=== PATIENT | female | born 1950 | race Caucasian/White ===

== ENCOUNTER → 2020-08-16 | Outpatient (CLI) | payer MEDICARE ==
--- NOTE | 2020-08-18 11:58 | MM ---
Reason for exam: screening (asymptomatic). History: Patient is postmenopausal and had first child at age 39. Family history of breast cancer in maternal grandmother at age 60. Physical Findings: A clinical breast exam by your physician is recommended on an annual basis and results should be correlated with mammographic findings. MG 3D Screening Mammo W/Cad Bilateral CC and MLO view(s) were taken. There are scattered fibroglandular densities. No significant changes when compared with prior studies. ASSESSMENT: Benign, BI-RAD 2 RECOMMENDATION: Routine screening mammogram of both breasts in 1 year.
== END | disposition home or self-care (01) ==
LOC: RADMAMWWP 11:03
PROVIDERS: ATTEND Obstetrics & Gynecology
DX: Z12.31 Encounter for screening mammogram for malignant neoplasm of breast (principal); Z80.3 Family history of malignant neoplasm of breast
CPT/HCPCS: 77063; 77067

== ENCOUNTER → 2020-10-31 | Outpatient (CLI) | payer MEDICARE ==
[2020-10-31 15:25] LABS: Basophils # (A) 0.1 k/uL (0-0.2); Basophils % (A) 1 %; Eosinophils % (A) 0 %; HCT 44.4 % (34.0-46.0); HGB 14.7 gm/dL (11.4-16.0); Lymphocytes % (A) 22 %; MCH 30.5 pg (25.0-35.0); MCV 92.3 fL (80.0-100.0); Mean Platelet Volume 7.5; Monocytes # (A) 0.5 k/uL (0-1.0); Monocytes % (A) 6 %; Neutrophils # (A) 6.6 k/uL (1.3-7.7); Neutrophils % (A) 71 %; Platelet Count 285 k/uL (150-450); RBC 4.81 m/uL (3.80-5.40); RDW 11.8 % (11.5-15.5); WBC 9.3 k/uL (3.8-10.6)
[2020-10-31 15:34] LABS: Potassium 4.1 mmol/L (3.5-5.1)
== END | disposition home or self-care (01) ==
LOC: LABPAT 14:32
PROVIDERS: ATTEND Orthopaedic Surgery
DX: Z01.818 Encounter for other preprocedural examination (principal); S52.572D Other intraarticular fracture of lower end of left radius, subsequent encounter for closed fracture with routine healing
CPT/HCPCS: 36415; 80051; 85025; 93005

== ENCOUNTER 2020-11-02 12:49 | Day surgery (SDC) | payer MEDICARE ==
[2020-10-31 15:41] VITALS: BMI 24.0
--- NOTE | 2020-11-02 08:40 | HP ---
HISTORY AND PHYSICAL CHIEF COMPLAINT: Left wrist pain. HISTORY OF PRESENT ILLNESS: The patient is a 70-year-old, right-hand dominant, retired female who presents with left wrist pain after an injury on 10/31/2020. She fell on some [place]. She notes left wrist pain ever since. She denies previous injury. PAST MEDICAL HISTORY: Significant for mastocytosis and depression. PAST SURGICAL HISTORY: Significant for appendectomy, tonsillectomy, laparoscopy, rectocele repair, and cholecystectomy. FAMILY HISTORY: Significant for cancer and heart disease along with Crohn's. SOCIAL HISTORY: Significant for social alcohol use. REVIEW OF SYSTEMS: Sixteen-point review of systems otherwise reviewed and is noncontributory. ALLERGIES: She does deny drug allergies. PHYSICAL EXAMINATION: On examination, patient is approximately 5 feet 4 inches, 140 pounds of mesomorphic habitus. HEENT exam is nonfocal. Neck is supple. She is nontender about the left shoulder and elbow. On examination of her left wrist, she has moderate swelling. Skin is intact. She has dorsal deformity. She is tender over the distal radius. The distal neurovascular exam appears to be intact. She does fire the finger flexors, extensors, and EPL along with FPL. X-rays of the left wrist obtained in the office show an intra-articular distal radius fracture with dorsal comminution and angulation. Less than 1 mm articular step-off is noted. IMPRESSION: Acute left intra-articular distal radius fracture. RECOMMENDATIONS: I talked to the patient and her at length regarding her condition along with treatment options. At this point, with her degree of initial displacement/angulation and comminution, I recommend proceeding with surgical intervention. We will plan to proceed with open reduction and internal fixation. Potentially we will perform that as an outpatient procedure. Risks and benefits were discussed at length in layman's terms. MMODL / IJN: [id number] /
[2020-11-02 13:26] VITALS: RESP 16
[2020-11-02] MEDS ORDERED: ONDANSETRON 4 MG/2 ML VIAL ONE ×2 (13:28→16:40)
[2020-11-02] MEDS ORDERED: DEXAMETHASONE SOD PHOSPHATE 4 MG/ML 1 ML VIAL IV ONE (13:30)
[2020-11-02] MEDS ORDERED: LIDOCAINE 1% (10MG/ML) FOR IV START INTRADERMA ONE (13:30)
[2020-11-02] MEDS ORDERED: LACTATED RINGERS 1,000 ML IV ONE ×2 (13:30→14:58)
[2020-11-02] MEDS ORDERED: MIDAZOLAM 2 MG/2 ML VIAL IV ONE ×2 (13:40→13:41)
[2020-11-02] MEDS ORDERED: MIDAZOLAM 2 MG/2 ML VIAL ONE (13:56)
[2020-11-02] MEDS ORDERED: LIDOCAINE 1% INJ 10MG/ML (20 ML MDV) ONE (13:56)
[2020-11-02] MEDS ORDERED: ROPIVACAINE 5 MG/ML 30 ML VIAL ONE (13:56)
[2020-11-02] MEDS ORDERED: PROPOFOL 10 MG/ML 20 ML VIAL IV ONE (13:56)
[2020-11-02] MEDS ORDERED: fentaNYL (PF) 50 MCG/ML 2 ML AMP ONE (13:56)
--- NOTE | 2020-11-02 14:30 | P.ANPRN ---
Procedure Note - Anesthesia - Nerve Block Performed Left Supraclavicular Single Time Out Performed: Yes (1339) Date of Procedure: 11/02/20 Procedure Start Time: 13:40 Procedure Stop Time: 13:46 Location of Patient: PreOp Indication: Acute Post-Operative Pain, Requested by Surgeon Specifically requested for management of pain by : Jones Moore Sedation Type: Sedate with meaningful contact maintained Preparation: Sterile Prep Position: Supine Catheter: None Needle Types: Pajunk Needle Gauge: 21 Ultrasound used to visualize needle placement: Yes Ultrasound used to observe medication spread: Yes Injectate: 0.5% Ropivacaine (see comment for volume) (25cc) Blood Aspirated: No Pain Paresthesia on Injection Noted: No Resistance on Injection: Normal Image Stored and Saved: Yes Events: Uneventful and Well Tolerated
[2020-11-02] MEDS ORDERED: BUPIVACAINE (PF) 0.5% 30 ML VIAL SQ ONE (14:32)
[2020-11-02] MEDS ORDERED: ceFAZolin 1,000 MG in SODIUM CHLORIDE 0.9% 1,000 ML IRRIGATION ONE (14:42)
--- NOTE | 2020-11-02 15:34 | XR ---
EXAMINATION TYPE: XR wrist limited LT, FL guidance operating room DATE OF EXAM: 11/02/2020 COMPARISON: NONE HISTORY: 70 year-old female left wrist ORIF FINDINGS: 3 intraoperative fluoroscopic images during left ORIF with placement of volar plate and screw fixatio n along the distal radius. FLUOROSCOPY Fluoroscopy time of 30 seconds was used during left wrist ORIF. 3 image/s document/s the procedure. IMPRESSION: Intraoperative fluoroscopy as above.
--- NOTE | 2020-11-02 15:38 | P.OP ---
Date of Procedure: 11/02/20 Preoperative Diagnosis: Displaced left intra-articular distal radius fracture Postoperative Diagnosis: Same Procedure(s) Performed: Open reduction and internal fixation left intra-articular distal radius fracture3 part Implants: Arthrex narrow 3 hole volar distal radius plate [facility] Surgeon: Jones Moore Estimated Blood Loss (ml): 3 Pathology: none sent Condition: stable Disposition: PACU Indications for Procedure: The patient's a 62-year-old female who presents after falling on some ice injuring her left wrist yesterday. Upon evaluation she was noted to have an angulated/displaced left intra-articular distal radius fracture with dorsal comminution. A discussion of the risks and benefits of operative intervention versus conservative measures was made with patient. She opted to proceed with surgery. Operative risks to include infection, neurovascular injury, development of blood clots, possible development of nonunion/malunion and need for subsequent procedures was discussed. Informed consent was obtained. Operative Findings: As below Description of Procedure: The patient was brought to the operating room, and after induction of general anesthesia the left upper extremity was prepped and draped in normal fashion. The tourniquet was inflated to 250 mmHg. A centimeter incision was then made along the volar radial aspect of the left wrist centered over the flexor carpi radialis. The skin was incised sharply. Subcutaneous tissues were divided bluntly. Electrocautery was used for hemostasis. The flexor carpi radialis tendon sheath was opened and the tendon was gently retracted ulnarly and the radial artery was retracted radially. The underlying fascia was opened. The contents of the carpal canal were then bluntly dissected ulnarly. A self-ret aining retractor was placed. The pronator quadratus was elevated off the volar surface the fracture site was identified and cleaned of clot and debris. The fracture was then reduced with longitudinal traction and manipulation. This is verified on the AP and lateral views of fluoroscopy. A 3 hole narrow volar plate was placed just proximal to the watershed line. This was held with all of wire along the shaft and a K wire distally. This was verified with fluoroscopy. A 3.5 mm cortical screw was placed proximally with good purchase. The distal row of smooth locking pegs were placed with the aid of fluoroscopy. Proximally was filled a similar fashion. The remaining 3.5 mm cortical screws were placed with good purchase. Final fluoroscopic views to include AP PA and elevated lateral showed adequate reduction of this fracture with jainism of volar tilt. The articular surface showed less than 1 mm articular step-off. The wound was irrigated normal saline. The pronator quadratus was closed with interrupted 3-0 Vicryl sutures. The subcutaneous tissues reapproximated interrupted 3-0 Vicryl sutures. The skin was reprepped and a 4-0 subcuticular Prolene suture. Steri-Strips were applied. The tourniquet was deflated less than 60 minutes total tourniquet time. A sterile dressing was applied in addition to a volar splint. The patient was then awoken from general anesthesia and transferred to the recovery room in good condition. Blood loss was estimated at 3 mL. No complications were incurred. Sponge and needle counts were correct at the end of the case.
[2020-11-02 15:44] VITALS: TEMP 96.8
[2020-11-02] MEDS ORDERED: HYDROmorphone 0.5 MG/0.5 ML SYRINGE IVP ONE (16:01)
[2020-11-02] MEDS ORDERED: ONDANSETRON 4 MG/2 ML VIAL IVP ONE (16:40)
[2020-11-02] MEDS ORDERED: Acetaminophen-Codeine 300-30mg TAB ONE (17:08)
[2020-11-02] MEDS ORDERED: Acetaminophen-Codeine 300-30mg TAB PO ONE (17:10)
[2020-11-02 17:27] VITALS: BP 138/89; PULSE 92
== END 2020-11-02 17:50 | disposition home or self-care (01) ==
LOC: OR 12:49
PROVIDERS: ATTEND Orthopaedic Surgery
DX: S52.572A Other intraarticular fracture of lower end of left radius, initial encounter for closed fracture (principal); W20.8XXA Other cause of strike by thrown, projected or falling object, initial encounter; Y93.01 Activity, walking, marching and hiking; Y92.832 Beach as the place of occurrence of the external cause; I48.91 Unspecified atrial fibrillation; K21.9 Gastro-esophageal reflux disease without esophagitis; F32.9 Major depressive disorder, single episode, unspecified; M79.7 Fibromyalgia; D47.09 Other mast cell neoplasms of uncertain behavior; Z98.890 Other specified postprocedural states; Z90.49 Acquired absence of other specified parts of digestive tract; Z90.89 Acquired absence of other organs; Z82.49 Family history of ischemic heart disease and other diseases of the circulatory system; Z83.79 Family history of other diseases of the digestive system; Z80.9 Family history of malignant neoplasm, unspecified; Z79.82 Long term (current) use of aspirin
CPT/HCPCS: 64415; 76942; 73100; 25609; C1713; J2250; J1100; J2405; J0690; J2001; J3010; J2795; J2704; J1170

== ENCOUNTER → 2020-12-30 | Outpatient (CLI) | payer MEDICARE ==
--- NOTE | 2020-12-30 15:49 | MR ---
EXAMINATION TYPE: MR knee LT wo con DATE OF EXAM: 12/30/2020 COMPARISON: Outside radiograph 12/15/2020 HISTORY: 70-year-old female with left knee pain. [id number]. TECHNIQUE: Multiplanar, multisequence imaging of the left knee is performed without IV contrast. FINDINGS: ACL, PCL, MCL are intact. There is focal area of fluid signal measuring 8 mm at the popliteus myotendinous junction. Otherwise, LCL complex is intact. Degenerative signal at the junction of the posterior horn and body of the medial meniscus may contact the tibial articular surface on one image, sagittal series 301 image 25. Mild diffuse thinning of me dial compartment articular cartilage volume. Lateral meniscus is intact. Overall lateral compartment articular cartilage is maintained. Areas of severe full-thickness cartilage loss along the lateral patellar facet with reactive subchond ral marrow signal changes. Moderate irregular cartilage loss along the medial patellar facet. Extensor mechanism is intact. Anterior soft tissue swelling noted. Additional edema within the suprap atellar fat pad. Physiologic joint fluid. Trace early Martinez's cyst measuring only 7 mm wide and 2.1 cm long. Normal popliteal artery anatomy in muscle bulk. No suspicious bone marrow replacement. IMPRESSION: 1. Degenerative signal and possible subtle oblique undersurface tear at the junction of the posterior horn and body of the medial meniscus (seen on a single sagittal image). 2. 8 mm fluid signal at the popliteus myotendinous junction could represent a strain and small tear. 3. Severe full-thickness cartilage loss along the lateral patellar facet and moderate irregular carti fany loss along the medial patellar facet. 4. Some edema within the suprapatellar fat pad can be seen with fat pad impingement syndrome. Clinica lly correlate. 5. Anterior soft tissue swelling and a tiny early Martinez's cyst.
== END | disposition home or self-care (01) ==
LOC: RADMRIMAIN 12:40
PROVIDERS: ATTEND Orthopaedic Surgery
DX: M71.22 Synovial cyst of popliteal space [Baker], left knee (principal); M79.4 Hypertrophy of (infrapatellar) fat pad; M94.8X8 Other specified disorders of cartilage, other site; M79.89 Other specified soft tissue disorders; M25.862 Other specified joint disorders, left knee; R60.0 Localized edema; R93.7 Abnormal findings on diagnostic imaging of other parts of musculoskeletal system

== ENCOUNTER → 2021-06-05 | Outpatient (CLI) | payer MEDICARE ==
[2021-06-05 20:56] LABS: African American GFR (CKD) 103.2 (60.0-200.0); Albumin 4.7 g/dL (3.80-4.90); Albumin/Globulin Ratio 1.81 (1.60-3.17); Anion Gap 10.6 mmol/L (4.00-12.00); BUN/Creat Ratio 22.86 Ratio (12.00-20.00); Calcium 9.9 mg/dL (8.7-10.3); Carbon Dioxide 22.4 mmol/L (21.6-31.8); Globulin 2.6 g/dL (1.6-3.3); Potassium 4.3 mmol/L (3.5-5.5); Total Bilirubin 0.6 mg/dL (0.3-1.2); Total Protein 7.3 g/dL (6.2-8.2)
[2021-06-05 21:24] LABS: C-Peptide 1.03 ng/mL (0.81-3.85)
== END | disposition home or self-care (01) ==
LOC: LABWHC1 10:48
PROVIDERS: ATTEND Internal Medicine Endocrinology, Diabetes & Metabolism
DX: M81.0 Age-related osteoporosis without current pathological fracture (principal)
CPT/HCPCS: 36415; 80053; 82306; 82523; 83970; 84443; 84681

== ENCOUNTER → 2021-07-26 | Outpatient (CLI) | payer MEDICARE ==
--- NOTE | 2021-07-27 14:14 | BD ---
EXAMINATION TYPE: Axial Bone Density DATE OF EXAM: 07/26/2021 COMPARISON: NONE CLINICAL HISTORY: Height: 5 FT 3IN Weight: 144 FRAX RISK QUESTIONS: Alcohol (3 or more units per day): NO Family History (Parent hip fracture): NO Glucocorticoids (More than 3mos): NO (Ex: prednisone, prednisolone, methylprednisolone, dexamethasone, and hydrocortisone). History of Fracture in Adulthood: YES Secondary Osteoporosis: 1. Type 1 Diabetes: NO 2. Hyperthyroidism: [employer] 3. Menopause before 45: [employer] 4. Malnutrition: [employer] 5. Chronic liver disease: NO Rheumatoid Arthritis: NO Current Tobacco Use: NO RISK FACTORS HISTORY OF: History of Wrist Fracture: LEFT When: 2020 Surgery to Spine/Hip(right/left)/Wrist (right/left): LEFT WRIST When: 2020 Family History of Osteoporosis: YES Active: YES Diet low in dairy products/other sources of calcium: NO Postmenopausal woman: AGE 57 Take estrogen and/or progesterone medications: NO Lost more than 2 inches in height since high school: NO MEDICATIONS: Additional Medications: ATORVASTATIN Additional History: EXAM MEASUREMENTS: Bone mineral densitometry was performed using the [employer] Interactive System. Bone mineral density as measured about the Lumbar spine is: ----- L1-L4(G/cm2): 0.919 T Score Values are as follows: ----- L2: -2.4 ----- L3: -2.3 ----- L4: -1.8 ----- L1-L4: -2.2 BASELINE Bone mineral density about the R hip (g/cm2): 0.710 Bone mineral density about the L hip (g/cm2): 0.660 T Score values are as follows: -----R Neck: -2.4 -----L Neck: -2.7 -----R Total: -2.4 -----L Total: -2.3 BASELINE IMPRESSION: Osteoporosis (T Score less than -2.5). There is increased fracture risk and therapy is usually indicated based on age. Re-Screen 1-2 years. NOTE: T-SCORE=SD OF THE YOUNG ADULT MEAN.
== END | disposition home or self-care (01) ==
LOC: RADBDWWP 09:42
PROVIDERS: ATTEND Family Medicine Sports Medicine
DX: M81.0 Age-related osteoporosis without current pathological fracture (principal); Z78.0 Asymptomatic menopausal state
CPT/HCPCS: 77080

== ENCOUNTER → 2021-08-30 | Outpatient (CLI) | payer MEDICARE ==
--- NOTE | 2021-09-01 14:06 | MM ---
Reason for exam: screening (asymptomatic). Last mammogram was performed 1 year ago. History: Patient is postmenopausal and had first child at age 39. Family history of breast cancer in maternal grandmother at age 60. Physical Findings: A clinical breast exam by your physician is recommended on an annual basis and results should be correlated with mammographic findings. MG 3D Screening Mammo W/Cad Bilateral CC and MLO view(s) were taken. Prior study comparison: August 16, 2020, bilateral MG 3d screening mammo w/cad. There are scattered fibroglandular densities. No significant changes when compared with prior studies. ASSESSMENT: Benign, BI-RAD 2 RECOMMENDATION: Routine screening mammogram of both breasts in 1 year.
== END | disposition home or self-care (01) ==
LOC: RADMAMWWP 16:16
PROVIDERS: ATTEND Family Medicine Sports Medicine
DX: Z12.31 Encounter for screening mammogram for malignant neoplasm of breast (principal); Z78.0 Asymptomatic menopausal state; Z80.3 Family history of malignant neoplasm of breast
CPT/HCPCS: 77063; 77067

== ENCOUNTER → 2021-11-21 | Outpatient (CLI) | payer MEDICARE ==
[2021-11-21 18:32] LABS: ALT 29 U/L (8-44); AST 23 U/L (13-35); Albumin 4.6 g/dL (3.8-4.9); Albumin/Globulin Ratio 1.65 (1.60-3.17); Alkaline Phosphatase 65 U/L (41-126); Bilirubin, Conjugated <0.20 mg/dL (0.20-0.40); Chol/HDL Ratio 3.16 Ratio; Globulin 2.8 g/dL (1.6-3.3); LDL Cholesterol,Calculated 123.3 mg/dL (0.0-131.0); Total Protein 7.4 g/dL (6.2-8.2); VLDL Calculation 17.64 mg/dL (5.00-40.00)
== END | disposition home or self-care (01) ==
LOC: LABWHC1 11:26
PROVIDERS: ATTEND Family Medicine Sports Medicine
DX: E78.5 Hyperlipidemia, unspecified (principal)
CPT/HCPCS: 36415; 80061; 80076

== ENCOUNTER → 2022-05-24 | Outpatient (CLI) | payer MEDICARE ==
[2022-05-24 18:15] LABS: Basophils # (A) 0.07 X 10*3/uL (0.00-0.10); Basophils % (A) 1.1 %; Eosinophils # (A) 0.08 X 10*3/uL (0.04-0.35); Eosinophils % (A) 1.2 %; HCT 47.9 % (37.2-46.3); HGB 15.1 g/dL (12.0-15.0); Immature Grans, Automated 0.3 %; Lymphocytes # (A) 3.63 X 10*3/uL (0.90-5.00); Lymphocytes % (A) 54.6 %; MCH 29.4 pg (27.0-32.0); MCHC 31.5 g/dL (32.0-37.0); MCV 93.2 fL (80.0-97.0); Mean Platelet Volume 9.5 fL (9.5-12.2); Monocytes # (A) 0.47 X 10*3/uL (0.20-1.00); Monocytes % (A) 7.1 %; NRBC Per 100 WBC 0 /100 WBCS (0.0-0.0); Neutrophils # (A) 2.38 X 10*3/uL (1.80-7.70); Neutrophils % (A) 35.7 %; Platelet Count 326 X 10*3/uL (140-440); RBC 5.14 X 10*6/uL (4.10-5.20); RDW 12.2 % (11.5-14.5); WBC 6.65 X 10*3/uL (4.50-10.00)
[2022-05-24 18:31] LABS: LDL Cholesterol,Calculated 127.6 mg/dL (0.0-131.0); VLDL Calculation 12.48 mg/dL (5.00-40.00)
== END | disposition home or self-care (01) ==
LOC: LABWHC1 12:31
PROVIDERS: ATTEND Family Medicine Sports Medicine
DX: Z00.00 Encounter for general adult medical examination without abnormal findings (principal); D47.09 Other mast cell neoplasms of uncertain behavior
CPT/HCPCS: 36415; 80061; 83520; 85025

== ENCOUNTER → 2022-07-24 | Outpatient (CLI) | payer MEDICARE ==
[2022-07-24 20:31] LABS: African American GFR (CKD) 101.7 (60.0-200.0); Albumin 4.7 g/dL (3.8-4.9); Albumin/Globulin Ratio 1.57 (1.60-3.17); BUN/Creat Ratio 20.57 Ratio (12.00-20.00); Blood Urea Nitrogen 14.4 mg/dL (9.0-27.0); Calcium 9.7 mg/dL (8.7-10.3); Non-African American GFR(CKD) 87.8 (60.0-200.0); Potassium 4.1 mmol/L (3.5-5.5); Total Bilirubin 0.4 mg/dL (0.30-1.20); Total Protein 7.7 g/dL (6.2-8.2)
== END | disposition home or self-care (01) ==
LOC: LABWHC1 11:41
PROVIDERS: ATTEND Family Medicine Sports Medicine
DX: E87.0 Hyperosmolality and hypernatremia (principal)
CPT/HCPCS: 36415; 80053

== ENCOUNTER → 2022-08-31 | Outpatient (CLI) | payer MEDICARE ==
--- NOTE | 2022-09-03 07:56 | MM ---
Reason for Exam: Screening (asymptomatic). Last screening mammogram was performed 12 month(s) ago. Patient History: Menarche at age 18. First Full-Term at age 39. Late child-bearing (after 30). Postmenopausal. Maternal grandmother had breast cancer, age 60. Risk Values: Danii 5 year model risk: 2.2%. NCI Lifetime model risk: 6.3%. Prior Study Comparison: 08/16/2020 Bilateral Screening Mammogram, [facility]. 08/30/2021 Bilateral Screening Mammogram, [facility]. Tissue Density: There are scattered fibroglandular densities. Findings: Analyzed By CAD. There is no suspicious new group of microcalcifications or new suspicious mass in either breast. Overall Assessment: Negative, BI-RAD 1 Management: Screening Mammogram of both breasts in 1 year. A clinical breast exam by your physician is recommended on an annual basis and results should be correlated with mammographic findings. Electronically signed and approved by: Reynaldo Wheeler M.D.
== END | disposition home or self-care (01) ==
LOC: RADMAMWWP 09:58
PROVIDERS: ATTEND Family Medicine Sports Medicine
DX: Z12.31 Encounter for screening mammogram for malignant neoplasm of breast (principal); Z78.0 Asymptomatic menopausal state; Z80.3 Family history of malignant neoplasm of breast
CPT/HCPCS: 77063; 77067